=== PATIENT | female | born 1975 | race Caucasian/White ===

== ENCOUNTER → 2016-07-03 | Outpatient (CLI) | payer BC | LOC: FIMAGING 15:41 | PROVIDERS: ATTEND Psychiatry & Neurology Neurology | DX: H02.401 Unspecified ptosis of right eyelid (principal) ==

== ENCOUNTER → 2016-07-06 | Outpatient (CLI) | payer BC ==
[~2016-07-06] MED LIST: IOPAMIDOL (ISOVUE 370) 100 ML BTL IV ONE
== END ==
LOC: FIMAGING 13:26
PROVIDERS: ATTEND Psychiatry & Neurology Neurology
DX: H02.401 Unspecified ptosis of right eyelid (principal)
CPT/HCPCS: Q9967